=== PATIENT | male | born 1995 | race Caucasian/White ===

== ENCOUNTER 2016-08-05 15:02 | Emergency (ER) | payer MEDICAID, OTHER ==
[~2016-08-05] VITALS: Ht 157.5 cm; Wt 65.0 kg
[2016-08-05 15:06] VITALS: Ht 157.5 cm; Wt 65.0 kg
[2016-08-05] MEDS ORDERED: IBUPROFEN 600 MG TAB PO ONE (17:00)
--- NOTE | 2016-08-05 17:24 | RADRPT ---
PROCEDURE: XR Cervical Spine. CLINICAL INDICATION: Neck pain. TECHNIQUE: Three views of the cervical spine were performed. Frontal, lateral, and AP open-mouth o dontoid. The images were reviewed on a PACS workstation. COMPARISON: None. FINDINGS: There is normal stature and alignment of the vertebrae. There is no fracture. There is no lytic or blastic lesion. The disk height is normal. The prevertebral soft tissues are normal. IMPRESSION: 1. Unremarkable images of the cervical spine. RPTAT: QQ .Mariusz Zaidi MD, MD Date Time Electronically viewed and signed by .Mariusz Zaidi MD, MD on 08/05/2016 17:23 .R/
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
[2016-08-05] MEDS ORDERED: IBUP-1542 PO (17:40)
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
[2016-08-05 18:54] VITALS: BP 127/64; PULSE 73; RESP 18; TEMP 98.4
== END 2016-08-05 18:55 | disposition home or self-care (01) ==
LOC: FTE 15:02
DX: S39.012A Strain of muscle, fascia and tendon of lower back, initial encounter (principal); S13.4XXA Sprain of ligaments of cervical spine, initial encounter; V49.40XA Driver injured in collision with unspecified motor vehicles in traffic accident, initial encounter
CPT/HCPCS: 72040; 72100; Z7610